=== PATIENT | female | born 1975 | race Caucasian/White ===

== ENCOUNTER 2020-11-04 18:15 | Emergency (ER) | payer OTHER ==
[~2020-11-04] VITALS: Ht 160 cm; Wt 149.4 kg
[2020-11-04] MEDS ORDERED: HYDROcodone/acetaminophen 5mg/325mg tablet PO ONE (23:05)
[2020-11-04] MEDS ORDERED: DOXYCYCLINE 100MG CAPSULE PO STA (23:05)
[2020-11-04] MEDS ORDERED: IBUP-1985 PO (23:08)
[2020-11-04] MEDS ORDERED: DOXY100C77 PO (23:08)
[2020-11-04 23:37] VITALS: BP 157/101
== END 2020-11-04 23:39 | disposition home or self-care (01) ==
LOC: ER 18:16
DX: S80.922A Unspecified superficial injury of left lower leg, initial encounter (principal); R22.43 Localized swelling, mass and lump, lower limb, bilateral; Z79.899 Other long term (current) drug therapy; X58.XXXA Exposure to other specified factors, initial encounter; Y93.89 Activity, other specified; Y92.89 Other specified places as the place of occurrence of the external cause; Y99.8 Other external cause status
CPT/HCPCS: 99283

== ENCOUNTER 2020-12-18 14:01 | Emergency (ER) | payer OTHER ==
[~2020-12-18] VITALS: Ht 160 cm; Wt 100.0 kg
[~2020-12-18 14:01] MED LIST: IBUP-1985 PO
[2020-12-18 15:15] VITALS: BP 135/92
[2020-12-18 16:36] LABS: PARTIAL THROMBOPLASTIN TIME 27 SECONDS (22-32)
[2020-12-18] MEDS ORDERED: HYDR-3965 PO (19:14)
[2020-12-18] MEDS ORDERED: CEPH-585 PO (19:14)
== END 2020-12-18 19:26 | disposition home or self-care (01) ==
LOC: ER 14:02
DX: L03.116 Cellulitis of left lower limb (principal); M79.605 Pain in left leg; F17.200 Nicotine dependence, unspecified, uncomplicated; Z98.890 Other specified postprocedural states; Z79.2 Long term (current) use of antibiotics; Z79.899 Other long term (current) drug therapy
CPT/HCPCS: 36415; 85610; 85730; 93971; 99284